=== PATIENT | female | born 1985 | race Caucasian/White ===

== ENCOUNTER → 2019-03-09 13:11 | Outpatient (CLI) | payer SELFPAY ==
[2017-07-08 04:04] VITALS: BMI 24.8
[2019-03-09 16:12] LABS: Chlamydia Trachomatis by PCR Negative (Negative); Neisserai gonorrhoeae by PCR Negative (Negative); Probe Check PASS; Sample Adequacy Control PASS; Specimen Processing Control PASS
== END ==
PROVIDERS: Visit Provider Obstetrics & Gynecology
DX: Z11.3 Encounter for screening for infections with a predominantly sexual mode of transmission (principal)
CPT/HCPCS: 87491; 87591

== ENCOUNTER → 2019-04-03 11:30 | Outpatient (CLI) | payer SELFPAY ==
[2017-07-08 04:04] VITALS: BMI 24.8
[2019-04-03 13:27] LABS: Absolute Lymphocyte Count 1.18 X10^3/uL (0.83-4.51); Absolute Neutrophil Count 6.9 X10^3/uL (2.0-7.7); Basophil# 0.04 X10^3/uL; Basophil% 0.5 % (0-1); Eosinophils% 2.3 % (0-5); Hematocrit 38.4 % (37-47); Lymphocyte # 1.18 X10^3/ul (4.0); Lymphocyte % 13.4 % (19-41); Mean Corp Hgb Conc 33.9 g/dL (32-36); Mean Corpuscular Hgb 30.1 pg (27.0-32.0); Mean Corpuscular Volume 88.9 fL (81-99); Mean Platelet Vol. 11.2 fl (6.2-12.0); Monocyte# 0.47 X10^3/uL; Monocyte% 5.3 % (0-10); NRBC Flagged by Analyzer 0 % (0-5); Neutrophil # 6.89 X10^3/uL (2.7-7.7); Neutrophil % 77.9 % (47-70); Platelet Count 246 K/mm3 (150-450); RBC Distribution Width CV 13.2 % (11.6-14.6); RBC Distribution Width SD 43.4 fl (35.1-43.9); Red Blood Count 4.32 M/mm3 (4.2-5.4); White Blood Count 8.8 K/mm3 (4.4-11.0)
[2019-04-03 13:36] LABS: Color, Urine Yellow (Yellow); Glucose, Dipstick Normal (Normal); Ketone-Dipstick Negative (Negative); Leukocyte Esterase-Dipstick Negative /ul (Negative); Nitrite-Dipstick Negative (Negative); Occult Blood-Urine Negative /ul (Negative); Protein-Dipstick Negative (Negative); Specific Gravity, Urine 1.005 (1.002-1.030); Urine Bilirubin Dipstick Negative (Negative); Urine Clarity Clear (Clear); Urine Urobilinogen Normal (Normal)
[2019-04-03 13:52] LABS: Thyroid Stim Hormone (TSH) 1.79 uIU/mL (0.358-3.74)
[2019-04-03 15:17] LABS: HIV - WCH Non-Reactive (Nonreactive); Hepatitis B Surface Antigen Non-Reactive (Nonreactive); Hepatitis C Antibody Non-Reactive (Nonreactive); Rubella IgG 165.9 IU/mL
[2019-04-06 02:58] LABS: Prenatal RPR NONREACTIVE (NONREACTIVE)
== END ==
PROVIDERS: Visit Provider Obstetrics & Gynecology
DX: Z34.82 Encounter for supervision of other normal pregnancy, second trimester (principal)
CPT/HCPCS: 36415; 80307; 81002; 84443; 85025; 86703; 86762; 86803; 87340

== ENCOUNTER → 2019-06-12 13:42 | Outpatient (CLI) | payer SELFPAY ==
[2017-07-08 04:04] VITALS: BMI 24.8
[2019-06-12 16:24] LABS: Hematocrit 35.2 % (37-47); Hemoglobin 11.9 g/dL (12.0-15.0); Mean Corp Hgb Conc 33.8 g/dL (32-36); Mean Corpuscular Hgb 30.7 pg (27.0-32.0); Mean Corpuscular Volume 90.7 fL (81-99); Mean Platelet Vol. 11.2 fl (6.2-12.0); Platelet Count 239 K/mm3 (150-450); RBC Distribution Width CV 13.2 % (11.6-14.6); RBC Distribution Width SD 43.8 fl (35.1-43.9); Red Blood Count 3.88 M/mm3 (4.2-5.4); White Blood Count 10.2 K/mm3 (4.4-11.0)
[2019-06-12 16:26] LABS: Glucose Challenge Gest 1H 50g 107 mg/dL (70-140)
== END ==
PROVIDERS: Visit Provider Obstetrics & Gynecology
DX: Z34.83 Encounter for supervision of other normal pregnancy, third trimester (principal)
CPT/HCPCS: 36415; 82950; 85027; 86850

== ENCOUNTER → 2019-08-09 | Outpatient (CLI) | payer SELFPAY | END | disposition home or self-care (01) | LOC: LABSPEC 14:05 | PROVIDERS: Visit Provider Obstetrics & Gynecology | DX: Z36.85 Encounter for antenatal screening for Streptococcus B (principal) | CPT/HCPCS: 87081 ==

== ENCOUNTER 2019-08-27 05:50 | Inpatient (IN) | payer SELFPAY ==
[2019-08-27] VITALS (27 sets, daily range): BP systolic 93–127; BP diastolic 53–76; PULSE 66–100; RESP 14–16; TEMP 36.5–37.4; O2SAT 96–99; BMI 24.8
[2019-08-27] MEDS: Lactated Ringers 500 ML 999 ML IV (06:25)
[2019-08-27 06:47] LABS: Absolute Lymphocyte Count 1.51 X10^3/uL (0.83-4.51); Absolute Neutrophil Count 7.1 X10^3/uL (2.0-7.7); Basophil# 0.04 X10^3/uL; Basophil% 0.4 % (0-1); Eosinophil# 0.25 X10^3/uL; Eosinophils% 2.6 % (0-5); Hematocrit 35.1 % (37-47); Hemoglobin 11.9 g/dL (12.0-15.0); Lymphocyte # 1.51 X10^3/ul (4.0); Lymphocyte % 15.8 % (19-41); Mean Corp Hgb Conc 33.9 g/dL (32-36); Mean Corpuscular Hgb 29.8 pg (27.0-32.0); Mean Platelet Vol. 11.4 fl (6.2-12.0); Monocyte# 0.58 X10^3/uL; Monocyte% 6.1 % (0-10); NRBC Flagged by Analyzer 0 % (0-5); Neutrophil # 7.09 X10^3/uL (2.7-7.7); Neutrophil % 74.2 % (47-70); Platelet Count 227 K/mm3 (150-450); RBC Distribution Width CV 13.2 % (11.6-14.6); RBC Distribution Width SD 42.3 fl (35.1-43.9); Red Blood Count 3.99 M/mm3 (4.2-5.4); White Blood Count 9.6 K/mm3 (4.4-11.0)
[2019-08-27] MEDS: Lactated Ringers 1,000 ML 200 ML IV (06:56)
[2019-08-27] MEDS: Oxytocin 30 units/NS 500 ml 30 UNITS/500 ML IV.SOLN 334 UNITS IV (07:33)
--- NOTE | 2019-08-27 07:39 | PCM.HP.BLA ---
History and Physical Date of Admission: 08/27/19 [facility] [place] ANTE[place] - HISTORY AND PHYSICAL (08/27/2019) Name: ANGELINA FARAH History of This : This is a 33-year-old 3 para 2 who presents to labor and delivery in active labor. care has been unremarkable. OB Physician: HECTOR [place]'s Physician: DR. LESLIE ROSS ...................................................................... : 1985 Age: 33 Address: [address] [place] [address] Phone: (h) [phone] ([phone] Insurance Carrier: Emergency Contact: CHIKA FARAH [phone] ...................................................................... Final MARY: 09/01/19 By Ultrasound: PARITY: (G-Total Pregnancies P-Fullterm,Premature,Induced AB,Spont AB, Ectopics, Multiple,Living) MARY CONFIRMATION: By LMP: 11/25/18 Initial Exam: 09/01/19 By First Ultrasound Exam: 09/01/19 Final MARY: 09/01/19 OB PROBLEM LIST: Declines AFP and CF tests. Tends to have frequent headaches- approx 2x w. Oligo with first . B Negative RhoGAM at 28 wk Initial visit at 14w5d. +FHT by DT ALLERGIES: NKDA MEDICATIONS: DHA+Complete 30 mg-975 mcg-300 mg oral pack 1 daily SOCIAL HISTORY: Smoking - Never Alcohol Use - None Diet - balanced Diet, caffeine < 2 drinks per day and water intake approx 1/2 gal day or more Lifestyle - Remodeling first floor of home. Moved into workshop for a few months. Exercise - gardening, walking and mowing Employer - homemaker Job Description - Illicit Drug Use - denies use of street drugs Sexual Activity - single sexual partner Residence - owns a home Place of - [place] Spouse-Sig Other Name - Rich Spouse-Sig Other Occupation - [employer] Spouse-Sig Other Phone No - [phone] Children Name(s) - Jason 15' (JW), Charlotteernestine (DS) PRIOR DELIVERY HISTORY DEL DATE GEST LAB WT LB WT OZ TYPE ANES LABOR TX 15 May 05 38 [phone] 10 Vag None No Jul 08 39 4 [phone] 4 Vag Local No ANTEPARTUM FLOW CHART VISIT RTC FU F F AK U U DATE WK MD WKS HT PN HR M SS BP ED WT AK GL D EF ST __ ____ ___ __ __ ___ __ __ __ ___ __ __ __ ___ __ 05 Aug CH 1 38 V + + 122/74 0 161 - - Jul SHM 1 36 V + + 110/76 o 160 - - Jul 36 CH 1 36 V + + 94/72 0 159 - - 3+ 25 hi 05 Jul 34 KW 2 34 V + + 108/54 0 159 - - Jun KW 2 31 + 106/58 156 - - Jul 20 CH 2 31 + + 90/62 0 156 - - Jun 17 ELB 2 - - U+ + 108/58 0 153 - - May 12 ELB 4 22 - + + 94/58 0 148 14 Apr 07 ELB 4 - B U+ + 100/70 0 142 - - ANTEPARTUM NOTE(S): Aug 24 2019: see note Aug 18 2020: Aug 09 2019: feeling well. GBS and LARC today. Jul 26 2019: Jul 12 2020: Jun 27 2019: feeling well. lots of heartburn. Jun 12 2019: RhoGAM today May 01 2019: No UA today Declines sono Apr 03 2019: see note COMPREHENSIVE ANTEPARTUM NOTE(S): Aug 24 2019: Angelina is here for a PNV. She is doing well, no edema or complaints. Good FM reported. MK Aug 24 2019: Doing well. +FM. No shivani oliveros contractions. Will want membrane stripping next visit possible with SVE. Reviewed 41wk and 41.3 NSTs and 41.6 IOL. - Aug 18 2019: H taken to OB. tkg Aug 18 2019: Labor precautions. Discussed stripping of membranes at next visit. Aug 09 2019: (m,m,m*) GBS swab education and collection today. Will review at next visit. FM+. FHR 135. SVE external OS 3-10/08/high, but internal OS 1. Will start weekly visits. Still has yet to meet [facility]. To return in 1 week for routine PNV. Understands to call with decreased FM, ROM, regular UC, or bleeding. - Jul 26 2019: Angelina states varicosities L leg not any worse. Reviewed Sx phlebitis. Wearing stockings, but not very supporting. Offered Rx support stockings; she will discuss further w/Veronica. Good FM. Still bothered w/heartburn. Taking enzymes, sometimes Tums. Advised use of Tums to keep heartburn from being bothersome, offered Pepcid before meals. To call if this is not helping and heartburn becoming more bothersome. kbm Jul 26 2019: Feeling well today with left leg varicosities, but states her compression hose she wears works well enough and doesn't want anything else. She has been putting them on after getting around for the day and taking them off in baudilio evening. Discussed putting them on before even exiting bed and not taking them off until in bed at night for full relief. Taking enzymes for heartburn and occasional TUMs. Discussed enzymes are okay, but to start regular tums and pepcid/maalox if needed. States understanding of both. Feeling +FM and FHR 138 today. Educated on GBS and swab at next visit. Will return in 2 weeks then start weekly visits. - Jul 12 2019: Feeling well; reports active FM; denies UCs, VB, LOF; discussed warning signs, s/s PTL; undecided as to CNM or MD for delivery, would like to meet [facility]; RTO 2 weeks for PNV w/[facility] - W Jun 27 2019: (m,m,m*) Reports +FM. FHR. Reviewed CBC and GTT both WNL. Feeling well, but heartburn is getting worse. Already taking enzymes with each meal, but now taking Tums. Reviewed may take them 4-6x a day if needed. BP runs on the lower side and is concerned. Already wears stocking on the left leg d/t varicose veins. Advised to wear compression stockings on both legs as well as increased water intake and reviewed slow position changes to prevent orthostasis. Discussed now infant has routine movements and if ever feeling less movement then need for kick counts. Educated on proper kick count method. Will return in 2 weeks for routine PNV with KW to start CNM rotation. To call with questions or concerns - Jun 12 2019: Angelina is doing well. Good FM. Voicing no concerns today. 1 HR Glucose, CBC, Antibody Screen drawn. Rhogam given after blood drawn. Jun 12 2019: Hgb 11.9 g/dl. Glucola 107 EB May 01 2019: B negative. RI. TSH wnl. Hgb 13 g/dl. UA neg all labs WNL and reviewed. RTO in 4 wk for PNV. EB Apr 03 2019: Angelina is here for NOB visit. She relates feeling ok except she has some tight feeling in her chest, more at night. Not significant shortness of breath. She could try something for reflux or see PCP to rule out other things. LMT Apr 03 2019: (m,m,m*)18w3d, ultrasound today revealing male. Will have new OB nurse visit as well. FM+. Only complaint is a tightness in chest, worse at night and in bed. Does notice after certain foods like pizza. Has enzymes at home she will try. If no relief or worsening/taking enzymes > 1x a day instructed to call for Rx. Reviewed SOB or chest pain to call/come in. No other concerns at this time. - CH Apr 03 2019: Angelina is here for NOB nurse visit with MARY 09-01-19 planning a vag del at [facility], without an epidural, using Dr Julien Ross for post disch ped care and to breastfeed. 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 They have almost 4 and 2 year old sons at home and this baby is male. They are pleased about the pg. Angelina had two uncomplicated vag del at [facility] and breastfed each baby one year. She has NKA to meds, food, latex or the environment. Her diet is balanced w one cup of coffee daily and about 1/2 gal of water. Importance of protein in her diet discussed. She is a lifetime non smoker, non drinker and denies street drug use. Angelina is active and busy w her home, garden and children. Enc to walk 20 min daily. Genetics Screening form completed noting no family issues. She declines AFP and CF tests. Warning signs in pg reviewed as well as lifting restrictions of 25#, wearing seatbelt ALWAYS despite position in vehicle, OTC meds ok to take and reaching the office after hours w understanding voiced. Both sons weigh at or over 25# and cautioned to use good body mechanics if no alternative to lifting them. She has a copy of What to Expect. US done at prev visit. Routine labs drawn today. They have no cats but she is aware of litter box issues. She's had chickenpox. Given the FoodSafety.gov paper on foods to avoid/be careful with. Enc to call w any concerns. Visit lasted approx 40 min. Edna DEL TORO. NEW Apr 03 2019: Hgb 13.0 g/dl. B negative. EB Mar 10 2019: GC and chlamydia NEG. EB Mar 09 2019: Angelina is being seen for missed menses visit. . UPT in office is positive. LMP 6. Pt is 14 weeks and 6 days. MARY 09-01-19. Last pap 2017 WNL, pap due 2020. Cultures due today. Medications and allergies are up to date. information reviewed with pt. Pt has no new concerns at this time. AM REVIEW OF SYSTEMS: GENERAL - Denies fever, or chills SKIN - Denies rash, new skin lesions, or change in moles EYES - Denies blurred vision, or change in visual acuity EARS - Denies ear pain, or difficulty hearing NOSE - Denies nasal congestion, discharge, or bleeding MOUTH - Denies sore throat, or difficulty swallowing NECK - Denies pain or swelling RESPIRATORY - Denies shortness of breath, cough, wheezing CARDIOVASCULAR - Denies palpitations, chest pain, orthopnea, PND, peripheral edema, syncope or claudication GASTROINTESTINAL - Denies nausea, vomiting, diarrhea, constipation, Denies abdominal pain, melena and or bright red blood GENITOURINARY - Denies dysuria, frequency of urination, urgency, or hesitancy MUSCULOSKELETAL - Denies joint or muscle pain, or back pain NEUROLOGICAL - Denies localized numbness, weakness, or tingling PSYCHIATRIC - Denies depression, anxiety, substance abuse or suicide attempts ENDOCRINE - Denies heat or cold intolerance, weight loss or gain, increasing thirst HEMATO-IMMUNOLOGIC - Denies easy bruising, bleeding, oral ulcerations or recurrent infections GENETICS SCREENING: Age 35+ years: No Thalassemia: No Neural Tube Defect: No Down Syndrome: No ERICK-SACHS: No Sickle Cell Disease: No Hemophilia: No Musc. Dystrophy: No Cystic Fibrosis: No-declines screening [place] Chorea: No Mental Retardation: No Fragile X: No Other genetic: No Other defects: No SABs/still births: No Drugs since LMP: No INFECTION HISTORY: High risk AIDS: No High risk Hepatitis: No Exposed to TB: No Exposed to Herpes: No Rash/viral illness since LMP: No History of STD: No MENSTRUAL HISTORY: *Menses Amount/Duration: 5-6 DAYSMenses Regularity: RegularFrequency: monthlyMenarche (Age Onset): 12* PAST SUMMARY: PARITY: 1. Total Pregnancies............ 3 2. Full Term Pregnancies........ 2 3. Premature.................... 0 4. Abortions - Induced.......... 0 5. Abortions - Spontaneous...... 0 6. Ectopics..................... 0 7. Multiple Births.............. 0 8. Living Children.............. 2 PAST #1: Date of :.................. 05/05/15 Gestation Weeks:................ 38 Length of labor(hours):......... 7 Sex:............................ M Weight-lbs:............... 6 Weight-oz:................ 10 Type of Delivery:............... Vag Type of Anesthesia:............. None Place of Delivery:.............. [place] Treatment of Labor?:.... No Comment: OLIGO PAST #2: Date of :.................. 07/08/17 Gestation Weeks:................ 39 Length of labor(hours):......... 4 Sex:............................ M Weight-lbs:............... 7 Weight-oz:................ 4 Type of Delivery:............... Vag Type of Anesthesia:............. Local Place of Delivery:.............. [place] Treatment of Labor?:.... No Comment: NO PHYSICAL EXAMINATION General Appearence: 33 yo female in no acute distress Vital Signs: AF, VSS Heart: RRR without rubs or gallops Lungs: CTA x 2 Breasts: deferred Abdomen: gravid Pelvis: Cervix: 5 cm / 90% effaced/intact Presentation: cephalic Station: -2 Fetus: Size: AGA Movement: present Heart: present Labs for : ANGELINA FARAH since 12/05/2018 ORDER DATEIN DESCRIPTION VALUE UNITS RANGE A+ COMMENT CULTURE, GROUP B STREPTOCOCCUS 08/09/19 NOTE Original Ordering Provider: DAVID Ruvalcaba Comments: VAGINAL/RECTAL STEPHANIE Culture Group B Beta Streptococcus is not isolated. Reviewed by HECTOR ANTIBODY SCREEN 06/12/19 [facility]~[address] [place], [address]~ ANTIBODY SCREEN NEGATIVE N Reviewed by ANJALI GLUCOSE CHALLENGE GEST 1H 50G 06/12/19 NOTE Original Ordering Provider: Anjali Kathleen GLU GEST 50G 1H 107 mg/dL 70-140 Reviewed by ANJALI CBC-COMPLETE BLOOD CNT NO DIFF 06/12/19 NOTE Original Ordering Provider: Anjali Kathleen WBC 10.2 K/mm3 4.4-11.0 RBC 3.88 M/mm3 4.2-5.4 L HGB 11.9 g/dL 12.0-15.0 L HCT 35.2 % 37-47 L MCV 90.7 fL 81-99 MCH 30.7 pg 27.0-32.0 MCHC 33.8 g/dL 32-36 RDW CV 13.2 % 11.6-14.6 RDW SD 43.8 fl 35.1-43.9 PLT 239 K/mm3 150-450 MPV 11.2 fl 6.2-12.0 Reviewed by ANJALI RPR 04/03/19 NOTE Original Ordering Provider: Anjali Kathleen RPR NONREACTIVE NONREACTIVE Reviewed by ANJALI HEPATITIS C ANTIBODY 04/03/19 NOTE Original Ordering Provider: Anjali Kathleen HEPATITIS C AB Non-Reactive Nonreactive Non Reactive: < 0.8 Equivocal: >/= 0.8 to < 1.0 Reactive: >/= 1.0 The CDC recommends that a reactive/equivocal HCV antibody result be followed up by the HCV Nucleic Acid Amplification test (454208) Reviewed by ANJALI HEPATITIS B SURFACE ANTIGEN 04/03/19 NOTE Original Ordering Provider: Anjali Kathleen HEPB SURFACE AG Non-Reactive Nonreactive Reviewed by ANJALI HIV - [facility] 04/03/19 NOTE Original Ordering Provider: Anjali Kathleen HIV - [facility] Non-Reactive Nonreactive Reviewed by ANJALI RUBELLA IGG 04/03/19 NOTE Original Ordering Provider: Anjali Kathleen RUBELLA IGG 165.9 IU/mL Antibody results Interpretation of Immune Status < 5 IU/ml Presumed Non-immune 5 - < 10 IU/ml Equivocal > or = 10 IU/ml Presumed Immune Reviewed by ANJALI T AND S-NO CHARGE W/PNP 04/03/19 Reason for Type AND Screen/Red Cells: Surgery? N [facility]~[address] [place], [address]~ BLOOD TYPE GEL B NEGATIVE N AB SCREEN GEL NEGATIVE N Reviewed by ANJALI THYROID STIM HORMONE (TSH) 04/03/19 NOTE Original Ordering Provider: Anjali Kathleen TSH 1.79 uIU/mL 0.358-3.74 Reviewed by ANJALI CBC W/DIFF, AUTOMATED 04/03/19 NOTE Original Ordering Provider: Anjali Kathleen WBC 8.8 K/mm3 4.4-11.0 RBC 4.32 M/mm3 4.2-5.4 HGB 13.0 g/dL 12.0-15.0 HCT 38.4 % 37-47 MCV 88.9 fL 81-99 MCH 30.1 pg 27.0-32.0 MCHC 33.9 g/dL 32-36 RDW CV 13.2 % 11.6-14.6 RDW SD 43.4 fl 35.1-43.9 PLT 246 K/mm3 150-450 MPV 11.2 fl 6.2-12.0 NEUT% 77.9 % 47-70 H LY% 13.4 % 19-41 L MONO% 5.3 % 0-10 EO% 2.3 % 0-5 BASO% 0.5 % 0-1 IM GRAN % 0.600 % 0.0-0.9 IG% - Immature Granulocytes (promyelocytes, myelocytes and metamyelocytes) > 1% indicates that a LEFT SHIFT is Present. ABSOLUTE NEUT 6.9 X10 3/uL 2.0-7.7 ABSOLUTE LYMPH 1.18 X10 3/uL 0.83-4.51 NRBC, FLAGGED 0 % 0-5 Reviewed by ANJALI URINE DRUG SCREEN (VISTA) 04/03/19 NOTE Original Ordering Provider: Anjali Kathleen TO BE CONFIRMED CONFIRMATORY TESTING FOR ALL POSITIVE URINE DRUG SCREEN RESULTS WILL ONLY BE SENT OUT UPON PHYSICIAN ORDER. VISTA Urine Drug Screen methods provide only preliminary analytical test results. A more specific alternate chemical method must be used in order to obtain a confirmed analytical result. Gas chromatography/mass spectrometery (GC/MS) is the preferred confirmatory method. Clinical consideration and professional judgement should be applied to any drug of abuse test result, particularly when preliminary positive results are used. URINE TCA TESTING MUST BE ORDERED SEPARATELY. USE TEST MNEMONIC: UTCA Reviewed by ANJALI URINALYSIS, ROUTINE (DIPSTICK) 04/03/19 NOTE Original Ordering Provider: Anjali Kathleen COLOR Yellow Yellow CLARITY Clear Clear GLUCOSE, UR Normal mg/dl Normal BILIRUBIN URINE Negative mg/dL Negative KETONE UR Negative mg/dl Negative SP.GR. DIPSTX 1.005 1.002-1.030 PH UR 7.0 5.0 - 8.0 PROT DIPSTX Negative mg/dl Negative UROBILI Normal mg/dl Normal NITRITE UR Negative Negative OCCULT BLOOD-UR Negative /ul Negative LEUK ESTERASE Negative /ul Negative Reviewed by ANJALI URINE DRUG SCREEN (VISTA) 04/03/19 NOTE Original Ordering Provider: Anjali Kathleen TO BE CONFIRMED CONFIRMATORY TESTING FOR ALL POSITIVE URINE DRUG SCREEN RESULTS WILL ONLY BE SENT OUT UPON PHYSICIAN ORDER. VISTA Urine Drug Screen methods provide only preliminary analytical test results. A more specific alternate chemical method must be used in order to obtain a confirmed analytical result. Gas chromatography/mass spectrometery (GC/MS) is the preferred confirmatory method. Clinical consideration and professional judgement should be applied to any drug of abuse test result, particularly when preliminary positive results are used. URINE TCA TESTING MUST BE ORDERED SEPARATELY. USE TEST MNEMONIC: UTCA Reviewed by ANJALI LOUISE/LUIS [facility] BY PCR 03/09/19 NOTE Original Ordering Provider: Anjali Kathleen [facility] PCR Negative Negative NG BY PCR Negative Negative Reviewed by ANJALI Impression /Plan: 39+ week intrauterine in active labor. Rupture of membranes showed light to moderate meconium stained fluid. Plan to have respiratory therapy and pediatrics at delivery. Preparations in progress for delivery.
--- NOTE | 2019-08-27 07:42 | PCM.OPRPT ---
Vaginal Delivery Maternal Presentation: Active Labor Amniotic Membrane Rupture Type: Artificial Amniotic Fluid Description: Lightly stained meconium Final MARY: 09/01/19 Final MARY Source: US <20 weeks Gestational age: 39 Weeks and 2 Days doctor who attended delivery (if requested by OB): Hanh Bryant Date of Procedure: 08/27/19 Pre-Operative Diagnosis: IUP Post-Operative Diagnosis: IUP Surgery/ Procedure Performed: Spontaneous Vaginal Delivery Type of Anesthesia: Local with 1% lidocaine Description of Procedure: Spontaneous vaginal delivery of a viable male infant with Apgars of 8/9 from an occiput anterior presentation with lightly stained meconium fluid and normal three-vessel placenta with cord around the neck x1 tight. No episiotomy. Second-degree midline laceration repaired with 3-0 Rapide suture under local anesthesia. Sponges okay. Delivery physician: Thang Hinojosa MD. Presentation: Vertex Placental Delivery Description: Spontaneous Placenta Disposition: [facility] Cord Vessel Description: 3 Vessels Cord Entanglement: Around neck x 1, tight Estimated Blood Loss: 250 cc Infant A gender: Male (1 minute): 8 (5 minute): 9 Episiotomy Description: None Laceration: Midline, 2nd degree Medications given after delivery: IV Pitocin Complications: None
[2019-08-27] MEDS: Ibuprofen 600 MG Tablet PO ×2 (08:24→18:26)
[2019-08-28 03:50] VITALS: BP 91/62; PULSE 64; RESP 16; TEMP 36.6
[2019-08-28 07:36] VITALS: BP 95/65; PULSE 73; RESP 16; TEMP 36.4
--- NOTE | 2019-08-28 10:00 | PCM.PN.OB ---
Subjective: Patient without complaints. Breast-feeding going well. Minimal vaginal bleeding; wants to go home later today if possible. - Physical Exam Vitals/I&O's: Vital Signs Temp Pulse Resp BP Pulse Ox 97.6 F L 73 16 95/65 99 08/28/19 07:36 08/28/19 07:36 08/28/19 07:36 08/28/19 07:36 08/27/19 09:35 Oxygen Delivery Method Room Air Weight: 158 lb 11.725 oz Body Mass Index (BMI) 24.8 Intake and Output for Last 24 Hours 08/26/19 08/27/19 08/28/19 22:59 23:59 23:59 Intake Total Balance Laboratory Results 08/27/19 06:25: Blood Type B NEGATIVE, Antibody Screen TNP 08/27/19 06:25: Antibody Screen NEGATIVE Current Medications Acetaminophen (Tylenol) 1,000 mg PO Q8H PRN PRN PRN Reason: Pain Score 1-3/10 Bisacodyl (Dulcolax) 10 mg RECTAL UD PRN PRN Reason: If no BM Dibucaine (Dibucaine) 1 applic TOPICAL TID PRN PRN; Protocol PRN Reason: Discomfort Hydrocortisone (Hytone) 1 applic TOPICAL TID PRN PRN; Protocol PRN Reason: Discomfort Ibuprofen (Motrin) 600 mg PO Q6H PRN PRN PRN Reason: Pain Score 1-3/10 Last Admin: 08/27/19 18:26 Dose: 600 mg Documented by: Methylergonovine Maleate (Methergine) 0.2 mg IM X1 PRN PRN Reason: Excess bleeding/uterine atony Ondansetron HCl (Zofran) 4 mg IV Q4H PRN PRN PRN Reason: Nausea Oxycodone HCl (Oxyir) 5 - 10 mg PO Q4H PRN PRN PRN Reason: Pain Score 4-10/10 Senna/Docusate Sodium (Senokot-S, Pura-Colace) 1 - 2 tablet PO DAILY PRN PRN PRN Reason: Constipation Simethicone (Mylicon) 80 mg PO PCHS PRN PRN Reason: Indigestion/Stomach pain Sodium Chloride () 5 - 15 ml IV UD PRN PRN Reason: SALINE FLUSH Zolpidem Tartrate (Ambien (Generic)) 5 mg PO QHS PRN PRN PRN Reason: Insomnia Medical Necessity - Tobacco Use Smoking Status: Never smoker Assessment/Plan All Active Problems Active labor at term (Acute) Doing well day #1 status post routine spontaneous vaginal delivery. Will release to home with routine instructions.
--- NOTE | 2019-08-28 10:01 | DCINST_ITS ---
May resume sexual activity in: 4-6 weeks Additional Activity Instructions:: Nothing in the vagina for 4-6 weeks. You may return to work/school in 6 weeks. Call your doctor if you observe: Inability to urinate, Inability to have a bowel movement, Using more than one pad per hour Additional Instructions: If you experience any of the following, contact your healthcare provider. * Bleeding that soaks a pad every hour for 2 hours * Fever 100.4 or higher * Unrelieved incision or abdominal pain * Swelling, redness, discharge or bleeding from your incision or episiotomy site * Your incision begins to separate * Problems urinating (including inability to urinate or burning while urinating). * Visual changes * Severe headache * Flu-like symptoms * Pain or redness in one of both of your breasts * Pain, warmth, tenderness or swelling in your legs, especially the calf area * Frequent nausea and vomiting * Symptoms of depression or anxiety If you experience any of the following, call 911 or go to the nearest Emergency Room. * Chest pain * Problems breathing * Seizure activity * Partial or complete paralysis of a body part, slurred speech, weakness or drooping of the face, or a sudden inability to walk or hold your balance Allergies/Adverse Reactions: Allergies No Known Allergies Allergy (Verified 08/27/19 06:18) Medications to take at Discharge Docosahexanoic Acid [ Dha] 1 tab PO BID 07/08/17 Please Follow Up With: Lindsay Ruvalcaba, [facility] - [phone] When: Call to make an appointment with your provider in 2 and 6 weeks. Primary Care Physician: Care Physician,No Primary [Primary Care Provider] - Test Results: Test results from this visit will be discussed in further detail at your follow- up appointment, if applicable.
--- NOTE | 2019-08-28 10:01 | PCM.DCVAG ---
May resume sexual activity in: 4-6 weeks Additional Activity Instructions:: Nothing in the vagina for 4-6 weeks. You may return to work/school in 6 weeks. Call your doctor if you observe: Inability to urinate, Inability to have a bowel movement, Using more than one pad per hour Additional Instructions: If you experience any of the following, contact your healthcare provider. Bleeding that soaks a pad every hour for 2 hours Fever 100.4 or higher Unrelieved incision or abdominal pain Swelling, redness, discharge or bleeding from your incision or episiotomy site Your incision begins to separate Problems urinating (including inability to urinate or burning while urinating). Visual changes Severe headache Flu-like symptoms Pain or redness in one of both of your breasts Pain, warmth, tenderness or swelling in your legs, especially the calf area Frequent nausea and vomiting Symptoms of depression or anxiety If you experience any of the following, call 911 or go to the nearest Emergency Room. Chest pain Problems breathing Seizure activity Partial or complete paralysis of a body part, slurred speech, weakness or drooping of the face, or a sudden inability to walk or hold your balance Allergies/Adverse Reactions: Allergies No Known Allergies Allergy (Verified 08/27/19 06:18) Medications to take at Discharge Docosahexanoic Acid [ Dha] 1 tab PO BID 07/08/17 Please Follow Up With: Lindsay Ruvalcaba, [facility] - [phone] When: Call to make an appointment with your provider in 2 and 6 weeks. Primary Care Physician: Care Physician,No Primary [Primary Care Provider] - Test Results: Test results from this visit will be discussed in further detail at your follow-up appointment, if applicable.
[2019-08-28 14:07] VITALS: BP 98/69; PULSE 66; RESP 16; TEMP 36.8; O2SAT 98
== END 2019-08-28 14:30 | disposition home or self-care (01) | DRG 807 ==
PROVIDERS: Admitting Provider Obstetrics & Gynecology; Visit Provider Obstetrics & Gynecology
DX: O77.0 Labor and delivery complicated by meconium in amniotic fluid (principal); Z37.0 Single live birth; Z3A.39 39 weeks gestation of pregnancy; O70.1 Second degree perineal laceration during delivery; O69.1XX0 Labor and delivery complicated by cord around neck, with compression, not applicable or unspecified
CPT/HCPCS: 59025; 59050; 85025; 86850; 86900; 86901; 99218; J7120; G0378

== ENCOUNTER → 2019-10-25 | Outpatient (CLI) | payer OTHER, SELFPAY ==
[2019-08-27 06:17] VITALS: BMI 24.8
== END | disposition home or self-care (01) ==
PROVIDERS: Referring Provider Obstetrics & Gynecology; Visit Provider Obstetrics & Gynecology
DX: Z12.4 Encounter for screening for malignant neoplasm of cervix (principal)
CPT/HCPCS: 88175; G0145

== ENCOUNTER → 2020-10-02 15:05 | Outpatient (CLI) | payer OTHER, SELFPAY ==
[2019-08-27 06:17] VITALS: BMI 24.8
[2020-10-02 15:33] LABS: Absolute Lymphocyte Count 1.45 X10^3/uL (0.83-4.51); Absolute Neutrophil Count 7.6 X10^3/uL (2.0-7.7); Basophil# 0.04 X10^3/uL; Basophil% 0.4 % (0-1); Eosinophil# 0.52 X10^3/uL; Eosinophils% 5.2 % (0-5); Hematocrit 37.8 % (37-47); Hemoglobin 12.5 g/dL (12.0-15.0); Lymphocyte # 1.45 X10^3/ul (0.83-4.51); Lymphocyte % 14.5 % (19-41); Mean Corp Hgb Conc 33.1 g/dL (32-36); Mean Corpuscular Hgb 28.7 pg (27.0-32.0); Mean Corpuscular Volume 86.7 fL (81-99); Mean Platelet Vol. 10.3 fl (6.2-12.0); Monocyte# 0.42 X10^3/uL; Monocyte% 4.2 % (0-10); NRBC Flagged by Analyzer 0 % (0-5); Neutrophil # 7.56 X10^3/uL (2.7-7.7); Neutrophil % 75.3 % (47-70); Platelet Count 270 K/mm3 (150-450); RBC Distribution Width CV 13.3 % (11.6-14.6); RBC Distribution Width SD 42.5 fl (35.1-43.9); Red Blood Count 4.36 M/mm3 (4.2-5.4)
[2020-10-02 15:43] LABS: Color, Urine Yellow (Yellow); Glucose, Dipstick Normal (Normal); Ketone-Dipstick Negative (Negative); Leukocyte Esterase-Dipstick Negative /ul (Negative); Nitrite-Dipstick Negative (Negative); Occult Blood-Urine Negative /ul (Negative); Protein-Dipstick Negative (Negative); Urine Bilirubin Dipstick Negative (Negative); Urine Clarity Clear (Clear); Urine Urobilinogen Normal (Normal); Urine pH 6.5 (5.0 - 8.0)
[2020-10-02 16:01] LABS: Thyroid Stim Hormone (TSH) 1.87 uIU/mL (0.358-3.74)
[2020-10-03 09:00] LABS: HIV - WCH Non-Reactive (Nonreactive); Hepatitis B Surface Antigen Non-Reactive (Nonreactive); Hepatitis C Antibody Non-Reactive (Nonreactive); Rubella IgG Reactive (Nonreactive); Syphilis Antibodies Non-reactive
[2020-10-05 03:07] LABS: Chlamydia By Nucleic Acid AMP Negative (Negative)
[2020-10-05 19:53] LABS: Gonococcus By Nucleic Acid AMP Negative (Negative)
== END ==
PROVIDERS: Visit Provider Obstetrics & Gynecology
DX: Z32.01 Encounter for pregnancy test, result positive (principal); Z11.3 Encounter for screening for infections with a predominantly sexual mode of transmission
CPT/HCPCS: 36415; 81002; 84443; 85025; 86703; 86762; 86780; 86803; 87340; 87491; 87591

== ENCOUNTER → 2021-01-15 09:57 | Outpatient (CLI) | payer OTHER, SELFPAY ==
[2019-08-27 06:17] VITALS: BMI 24.8
[2021-01-15 11:16] LABS: Hematocrit 30.9 % (37-47); Hemoglobin 10.3 g/dL (12.0-15.0); Mean Corp Hgb Conc 33.3 g/dL (32-36); Mean Corpuscular Hgb 29.9 pg (27.0-32.0); Mean Corpuscular Volume 89.8 fL (81-99); Mean Platelet Vol. 10.8 fl (6.2-12.0); Platelet Count 263 K/mm3 (150-450); RBC Distribution Width CV 13.2 % (11.6-14.6); RBC Distribution Width SD 43.6 fl (35.1-43.9); Red Blood Count 3.44 M/mm3 (4.2-5.4); White Blood Count 10.2 K/mm3 (4.4-11.0)
[2021-01-15 11:22] LABS: Glucose Challenge Gest 1H 50g 64 mg/dL (70-140)
== END ==
PROVIDERS: Visit Provider Obstetrics & Gynecology
DX: Z34.83 Encounter for supervision of other normal pregnancy, third trimester (principal)
CPT/HCPCS: 36415; 82950; 85027; 86850

== ENCOUNTER → 2021-03-13 10:58 | Outpatient (CLI) | payer OTHER, SELFPAY | PROVIDERS: Visit Provider Obstetrics & Gynecology | DX: Z36.85 Encounter for antenatal screening for Streptococcus B (principal) | CPT/HCPCS: 87081 ==

== ENCOUNTER 2021-04-09 07:00 | Inpatient (IN) | payer SELFPAY, OTHER ==
[2021-04-09] VITALS (22 sets, daily range): BP systolic 102–121; BP diastolic 56–78; PULSE 69–96; RESP 16–18; TEMP 36.3–37.4; O2SAT 99–100; BMI 26.4
[2021-04-09] MEDS: Lactated Ringers 1,000 ML 50 ML IV (07:50)
[2021-04-09 08:06] LABS: Absolute Lymphocyte Count 1.25 X10^3/uL (0.83-4.51); Absolute Neutrophil Count 6.4 X10^3/uL (2.0-7.7); Basophil# 0.03 X10^3/uL; Basophil% 0.4 % (0-1); Eosinophil# 0.11 X10^3/uL; Eosinophils% 1.3 % (0-5); Hematocrit 29.5 % (37-47); Hemoglobin 9.3 g/dL (12.0-15.0); Lymphocyte # 1.25 X10^3/ul (0.83-4.51); Lymphocyte % 14.8 % (19-41); Mean Corp Hgb Conc 31.5 g/dL (32-36); Mean Corpuscular Hgb 25.2 pg (27.0-32.0); Mean Corpuscular Volume 79.9 fL (81-99); Mean Platelet Vol. 11.1 fl (6.2-12.0); Monocyte% 7.1 % (0-10); NRBC Flagged by Analyzer 0 % (0-5); Neutrophil # 6.37 X10^3/uL (2.7-7.7); Neutrophil % 75.3 % (47-70); Platelet Count 258 K/mm3 (150-450); RBC Distribution Width CV 14.7 % (11.6-14.6); RBC Distribution Width SD 42.5 fl (35.1-43.9); Red Blood Count 3.69 M/mm3 (4.2-5.4); White Blood Count 8.5 K/mm3 (4.4-11.0)
[2021-04-09] MEDS: Oxytocin 30 units/NS 500 ml 30 UNITS/500 ML IV.SOLN IV (08:20)
--- NOTE | 2021-04-09 14:16 | HP.PCM_ITS ---
History and Physical Date of Admission: 04/09/21 ACOG ANTEPARTUM RECORD - HISTORY AND PHYSICAL (04/09/2021) Name: ANGELINA FARAH History of this : This is a 35 year old [id number] presents at 40 wks + 2 days gestation for elective induction.. OB Physician: Thang Hinojosa MD 's Physician: DR. LESLIE ROSS ...................................................................... : 1985 Age: 35 Address: [address] [place] [address] Phone: (h) [phone] Insurance Carrier: Emergency Contact: CHIKA FELIPE LEXUS [phone] ...................................................................... Final MARY: 04/07/21 By Ultrasound: 18 weeks 2 days PARITY: (G-Total Pregnancies P-Fullterm,Premature,Induced AB,Spont AB, Ectopics, Multiple,Living) MARY CONFIRMATION: By LMP: 06/17/20 Initial Exam: 03/24/21 By First Ultrasound Exam: 04/07/21 Final MARY: 04/07/21 OB PROBLEM LIST: Last baby- in WP 1 h 15 min prior to del. Oligo with first . 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 Moved into workshop for a few months. Exercise - Busy w family, home, garden, mow lawn. Employer - homemaker Job Description - Illicit Drug Use - denies use of street drugs Sexual Activity - single sexual partner Residence - owns a home Place of - [place] Spouse-Sig Other Name - Rich Spouse-Sig Other Occupation - [employer] Spouse-Sig Other Phone No - [phone] Children Name(s) - Jason 15' (JW), Maryse (DS), [place] PRIOR DELIVERY HISTORY DEL DATE GEST LAB WT LB WT OZ TYPE ANES LABOR TX 08 Sep 07 [phone] Vag Local No May 05 [phone] 10 Vag None No Jul 08 39 4 [phone] 4 Vag Local No ANTEPARTUM FLOW CHART VISIT GE RTC FU F F FL U U DATE WK MD WKS HT PN HR M SS BP ED WT FL GL D EF ST __ ____ ___ __ __ ___ __ __ __ ___ __ __ __ ___ __ Mar JMW 6 38 + + 100/72 1+ 170 - - 14 Mar JMW 1 38 + + 118/64 tr 172 ne ne 2 50 -2 07 Mar JMW 1 38 V + + 112/70 sl 170 - - 29 Feb 37 JMW 1 37 + + 116/80 0 171 - - 23 Feb 36 JMW 1 36 V + + 104/60 0 164 tr - cl 80 -2 09 Feb 34 JMW 2 34 + + 108/66 0 166 Jan JMW 2 32 + + 104/60 0 166 ne ne Jan 15 JM 2 28 - on + 98/64 tr 161 ne ne Dec 10 JMW 6 22 + + 82/62 sl 153 - - November 05 JMW 4 18 + + 110/60 0 146 ne ne ANTEPARTUM NOTE(S): Apr 08 2021: Good FM and Induce per Request Apr 03 2021: Occas contx with inc vaginal pressure Mar 27 2021: Good FM, Feeling Well Mar 19 2021: feeling well. AM Mar 13 2021: GBS today, Good FM, LARC form signed Feb 27 2021: feeling well. AM Feb 12 2021: vericosities left leg, Good FM Jan 15 2021: Rhogam, GCT today Dec 02 2020: Glucola Given Nov 06 2020: US today, genetic packet given COMPREHENSIVE ANTEPARTUM NOTE(S): Apr 08 2021: Angelina here for PNV. FM today. Last night was concerned she didn't feel any. Edema check +1 from socks. CB Apr 08 2021: Scheduled for Induction for Wednesday04-08-21 at 0700 and knows to call at 0500 for verification of room. Questions answered and consents signed. ARVIND Mar 27 2021: Angelina presents here today for PNV and reports feeling well and good FM. Declines offer to set up Induction at this time, as she admits she prefers to go on her own, or she has with her other 3 children. ARVIND Mar 18 2021: H taken to OB. tkg Feb 12 2021: Angelina is here for PNV at 32/2. Feeling well with good FM. Eating and getting adequate fluids. Still with vericosites of left leg. Wearing support stockings which helps as well as elevation. Voicing no concerns. Urine neg/neg. LSS Jan 15 2021: Angelina is here for PNV. GCT/labs and Rhogam today. Voicing no complaints. Feeling well and taking food/fluids without difficulty. Having good FM. No edema present today. Urine neg/neg. LSS Jan 15 2021: 28 weeks, ultrasound today AGA. Resolved marginal previa. 1 hour GTT and RhoGam today. With history of oligohydramnios will consider repeat ultrasound at 35 to 36 weeks. JM Dec 02 2020: Angelina is here for a PNV at 22 wks. FM present, anterior placenta. Sl edema present in ankles, varicose veins L ankle. No concerns expressed at this time. MK Nov 06 2020: Angelina is here folloiwng US for PNV. Changed from 20w3d to 18w2d per US with MARY 04-07-21. Genetic packet given. Having no problems with N/V. No edema noted today. Does wear support stockings. Having faint FM. Anterior placenta on US. Urine neg/neg. No concerns today. 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 Rich works at [employer]. They are pleased about the pg. Their children are 5, 3 and 13 mo. Angelina has NKAD. She is a lifetime non smoker, non drinker and denies street drug use. Her diet is balanced w occ pop and clos Oct 02 2020: Angelina is here for missed menses. Office UPT +. LMP 06-17-20. 15w 2d. MARY 03-24-21. . Last PAP and WNL. Feeling well with very little nausea at this time. Had more earlier in . Otherwise no changes in health history. Allergy and medication lists updated. Taking her vitamin. info packet given. Labs drawn today. Deferrs to have US at next apt close Oct 02 2020: ok REVIEW OF SYSTEMS: GENERAL - Denies fever, or chills SKIN - Denies rash, new skin lesions, or change in moles EYES - Denies blurred vision, or change in visual acuity EARS - Denies ear pain, or difficulty hearing NOSE - Denies nasal congestion, discharge, or bleeding MOUTH - Denies sore throat, or difficulty swallowing NECK - Denies pain or swelling RESPIRATORY - Denies shortness of breath, cough, wheezing CARDIOVASCULAR - Denies palpitations, chest pain, orthopnea, PND, peripheral edema, syncope or claudication GASTROINTESTINAL - Denies nausea, vomiting, diarrhea, constipation, Denies abdominal pain, melena and or bright red blood GENITOURINARY - Denies dysuria, frequency of urination, urgency, or hesitancy MUSCULOSKELETAL - Denies joint or muscle pain, or back pain NEUROLOGICAL - Denies localized numbness, weakness, or tingling PSYCHIATRIC - Denies depression, anxiety, substance abuse or suicide attempts ENDOCRINE - Denies heat or cold intolerance, weight loss or gain, increasing thirst HEMATO-IMMUNOLOGIC - Denies easy bruising, bleeding, oral ulcerations or recurrent infections GENETICS SCREENING: Age 35+ years: Yes Thalassemia: No Neural Tube Defect: No Down Syndrome: No ERICK-SACHS: No Sickle Cell Disease: No Hemophilia: No Musc. Dystrophy: No Cystic Fibrosis: No-declines screening Camas Chorea: No Mental Retardation: No Fragile X: No Other genetic: No Other defects: No SABs/still births: No Drugs since LMP: No INFECTION HISTORY: High risk AIDS: No High risk Hepatitis: No Exposed to TB: No Exposed to Herpes: No Rash/viral illness since LMP: No History of STD: No MENSTRUAL HISTORY: *Menarche (Age Onset): 12* PAST SUMMARY: PARITY: 1. Total Pregnancies............ 4 2. Full Term Pregnancies........ 3 3. Premature.................... 0 4. Abortions - Induced.......... 0 5. Abortions - Spontaneous...... 0 6. Ectopics..................... 0 7. Multiple Births.............. 0 8. Living Children.............. 3 PAST #1: Date of :.................. 05/05/15 Gestation Weeks:................ 38 Length of labor(hours):......... 7 Sex:............................ M Weight-lbs:............... 6 Weight-oz:................ 10 Type of Delivery:............... Vag Type of Anesthesia:............. None Place of Delivery:.............. [place] Treatment of Labor?:.... No Comment: OLIGO PAST #2: Date of :.................. 07/08/17 Gestation Weeks:................ 39 Length of labor(hours):......... 4 Sex:............................ M Weight-lbs:............... 7 Weight-oz:................ 4 Type of Delivery:............... Vag Type of Anesthesia:............. Local Place of Delivery:.............. [place] Treatment of Labor?:.... No Comment: NO PAST #3: Date of :.................. 08/27/19 Gestation Weeks:................ 39 Length of labor(hours):......... 6 Sex:............................ M Weight-lbs:............... 6 Weight-oz:................ 12 Type of Delivery:............... Vag Type of Anesthesia:............. Local Place of Delivery:.............. [place] Treatment of Labor?:.... No Comment: NO PHYSICAL EXAMINATION General Appearence: 35 yo female in no acute distress Vital Signs: AF, VSS Heart: RRR without rubs or gallops Lungs: CTA x 2 Breasts: deferred Abdomen: gravid Pelvis: Cervix: Presentation: cephalic Station: Fetus: Size: AGA Movement: present Heart: present LAB TEST(S) ORDERED SINCE:07/11/20 04/09/2021 TYPE AND SCREEN 04/09/2021 CBC W/DIFF, AUTOMATED 03/16/2021 RULE OUT BETA STREP (GRP. B) 01/15/2021 GLUCOSE CHALLENGE GEST 1H 50G 01/15/2021 CBC-COMPLETE BLOOD CNT NO DIFF 01/15/2021 [id number] 10/05/2020 CHLAMYDIA/GC JIA APTIMA 10/03/2020 RUBELLA IGG 10/03/2020 L509.8000 10/03/2020 HIV - [facility] 10/03/2020 HEPATITIS C ANTIBODY 10/03/2020 HEPATITIS B SURFACE ANTIGEN 10/02/2020 URINALYSIS, ROUTINE (DIPSTICK) 10/02/2020 THYROID STIM HORMONE (TSH) 10/02/2020 T AND S-NO CHARGE W/PNP 10/02/2020 CBC W/DIFF, AUTOMATED = = ==== Order Observation Description Value Ref_Range A* Site == ==== Labor [facility]~[address] [place], [address]~ TYPE AND SCRE AB SCREEN GEL NEGATIVE ML CBC W/DIFF, AUT NOTE [facility] CBC W/DIFF, AUT WBC 8.5 K/mm3 4.4-11.0 ML CBC W/DIFF, AUT RBC 3.69 M/mm3 4.2-5.4 L ML CBC W/DIFF, AUT HGB 9.3 g/dL 12.0-15.0 L ML CBC W/DIFF, AUT HCT 29.5 37-47 L ML CBC W/DIFF, AUT MCV 79.9 fL 81-99 L ML CBC W/DIFF, AUT MCH 25.2 pg 27.0-32.0 L ML CBC W/DIFF, AUT MCHC 31.5 g/dL 32-36 L ML CBC W/DIFF, AUT RDW CV 14.7 11.6-14.6 H ML CBC W/DIFF, AUT RDW SD 42.5 fl 35.1-43.9 ML CBC W/DIFF, AUT PLT 258 K/mm3 150-450 ML CBC W/DIFF, AUT MPV 11.1 fl 6.2-12.0 ML CBC W/DIFF, AUT NEUT% 75.3 47-70 H ML CBC W/DIFF, AUT LY% 14.8 19-41 L ML CBC W/DIFF, AUT MONO% 7.1 0-10 ML CBC W/DIFF, AUT EO% 1.3 0-5 ML CBC W/DIFF, AUT BASO% 0.4 0-1 ML CBC W/DIFF, AUT IG% 1.100 0.0-0.9 H ML IG% - Immature Granulocytes (promyelocytes, myelocytes and metamyelocytes) > 1% indicates that a LEFT SHIFT is Present. CBC W/DIFF, AUT ABSOLUTE NEUT 6.4 X10 3/uL 2.0-7.7 ML CBC W/DIFF, AUT ABSOLUTE LYMPH 1.25 X10 3/uL 0.83-4.51 ML CBC W/DIFF, AUT NUCLEATED RBC 0 0-5 ML RULE OUT BETA S NOTE [facility]~[address] [place], [address]~ [id number] AB SCREEN GEL NEGATIVE ML GLUCOSE CHALLEN NOTE [facility] GLUCOSE CHALLEN GLU GEST 50G 1H 64 mg/dL 70-140 L ML CBC-COMPLETE BL NOTE [facility] CBC-COMPLETE BL WBC 10.2 K/mm3 4.4-11.0 ML CBC-COMPLETE BL RBC 3.44 M/mm3 4.2-5.4 L ML CBC-COMPLETE BL HGB 10.3 g/dL 12.0-15.0 L ML CBC-COMPLETE BL HCT 30.9 37-47 L ML CBC-COMPLETE BL MCV 89.8 fL 81-99 ML CBC-COMPLETE BL MCH 29.9 pg 27.0-32.0 ML CBC-COMPLETE BL MCHC 33.3 g/dL 32-36 ML CBC-COMPLETE BL RDW CV 13.2 11.6-14.6 ML CBC-COMPLETE BL RDW SD 43.6 fl 35.1-43.9 ML CBC-COMPLETE BL PLT 263 K/mm3 150-450 ML CBC-COMPLETE BL MPV 10.8 fl 6.2-12.0 ML CHLAMYDIA/GC NA NOTE [facility] CHLAMYDIA/GC NA CHLAMY,NUC ACID Negative Negative LCI CHLAMYDIA/GC NA GC BY NUC ACID Negative Negative LCI Performed at: =[address] [place] [id number] [employer]p Purchasing: Katie Pang MD, Phone: [phone] HEPATITIS C ANT NOTE [facility] HEPATITIS C ANT HEPATITIS C AB Non-Reactive Nonreactive ML Non Reactive: < 0.8 Equivocal: >/= 0.8 to < 1.0 Reactive: >/= 1.0 The CDC recommends that a reactive/equivocal HCV antibody result be followed up by the HCV Nucleic Acid Amplification test ([id number]) HEPATITIS B PIPPA NOTE [facility] HEPATITIS B PIPPA HEP B SURF AG Non-Reactive Nonreactive ML HIV - [facility] NOTE [facility] HIV - [facility] HIV Non-Reactive Nonreactive ML L509.8000 NOTE [facility] L509.8000 SYPHILIS ABS Non-reactive ML RUBELLA IGG NOTE [facility] RUBELLA IGG RUBELLA IGG Reactive Nonreactive ML Antibody Results Interpretation of Immune Status Non Reactive Presumed Non-Immune Equivocal Equivocal Reactive Presumed Immune PN N [facility]~[address] [place], [address]~ T AND AB SCREEN GEL NEGATIVE ML THYROID STIM HO NOTE [facility] THYROID STIM HO TSH 1.87 uIU/mL 0.358-3.74 ML URINALYSIS, ROU NOTE [facility] URINALYSIS, ROU COLOR Yellow Yellow ML URINALYSIS, ROU URINE CLARITY Clear Clear ML URINALYSIS, ROU GLUCOSE, UR Normal mg/dl Normal ML URINALYSIS, ROU BILIRUBIN URINE Negative mg/dL Negative ML URINALYSIS, ROU KETONE UR Negative mg/dl Negative ML URINALYSIS, ROU SP.GR. DIPSTX 1.010 1.002-1.030 ML URINALYSIS, ROU PH UR 6.5 5.0 - 8.0 ML URINALYSIS, ROU PROT DIPSTX Negative mg/dl Negative ML URINALYSIS, ROU UROBILI Normal mg/dl Normal ML URINALYSIS, ROU NITRITE Negative Negative ML URINALYSIS, ROU OCCULT BLOOD-UR Negative /ul Negative ML URINALYSIS, ROU LEUK ESTERASE Negative /ul Negative ML CBC W/DIFF, AUT NOTE [facility] CBC W/DIFF, AUT WBC 10.0 K/mm3 4.4-11.0 ML CBC W/DIFF, AUT RBC 4.36 M/mm3 4.2-5.4 ML CBC W/DIFF, AUT HGB 12.5 g/dL 12.0-15.0 ML CBC W/DIFF, AUT HCT 37.8 37-47 ML CBC W/DIFF, AUT MCV 86.7 fL 81-99 ML CBC W/DIFF, AUT MCH 28.7 pg 27.0-32.0 ML CBC W/DIFF, AUT MCHC 33.1 g/dL 32-36 ML CBC W/DIFF, AUT RDW CV 13.3 11.6-14.6 ML CBC W/DIFF, AUT RDW SD 42.5 fl 35.1-43.9 ML CBC W/DIFF, AUT PLT 270 K/mm3 150-450 ML CBC W/DIFF, AUT MPV 10.3 fl 6.2-12.0 ML CBC W/DIFF, AUT NEUT% 75.3 47-70 H ML CBC W/DIFF, AUT LY% 14.5 19-41 L ML CBC W/DIFF, AUT MONO% 4.2 0-10 ML CBC W/DIFF, AUT EO% 5.2 0-5 H ML CBC W/DIFF, AUT BASO% 0.4 0-1 ML CBC W/DIFF, AUT IG% 0.400 0.0-0.9 ML IG% - Immature Granulocytes (promyelocytes, myelocytes and metamyelocytes) > 1% indicates that a LEFT SHIFT is Present. CBC W/DIFF, AUT ABSOLUTE NEUT 7.6 X10 3/uL 2.0-7.7 ML CBC W/DIFF, AUT ABSOLUTE LYMPH 1.45 X10 3/uL 0.83-4.51 ML CBC W/DIFF, AUT NUCLEATED RBC 0 0-5 ML B NEGATIVE Group B Beta Streptococcus is not isolated. B NEGATIVE == ==== Impression /Plan: 40 wks + 2 days intrauterine . Preparations in progress for delivery.
[2021-04-09] MEDS: Oxytocin 30 units/NS 500 ml 30 UNITS/500 ML IV.SOLN 334 UNITS IV (15:15)
--- NOTE | 2021-04-09 15:23 | EX.PCM.OBRPT ---
Maternal Data Information Final MARY: 04/07/21 Final MARY Source: US <20 weeks Gestational age: 40w 2 d Vaginal Delivery Maternal Presentation Maternal Presentation: Elective Induction Type of Induction: Pitocin and Amniotomy Operative Information Date of Procedure: 04/09/21 Pre-Operative Diagnosis: IUP Post-Operative Diagnosis: IUP Type of Anesthesia: None Estimated Blood Loss: 250 cc Fluids Replaced: Crystalloid Findings Description of Procedure: Spontaneous vaginal delivery of a viable female infant with Apgars of 8/9 from an occiput anterior presentation with clear amniotic fluid and normal three-vessel placenta. No episiotomy. Second-degree midline laceration repaired with 3-0 rapide suture. Sponges okay. Delivery physician: Tahng Hinojosa MD. Presentation: Vertex Amniotic Membrane Rupture Type: Artificial Amniotic Fluid Description: Clear (At time of rupture) and Lightly stained meconium (In late labor) Placental Delivery Description: Spontaneous Placenta Disposition: [facility] Cord Vessel Description: 3 Vessels Cord Entanglement: Around neck x 2, loose A Gender: Female (1 minute): 8 (5 minute): 9 Post Vaginal Delivery Medications Given After Delivery: IV Pitocin Episiotomy Description: None Laceration: Midline and 2nd degree Complication Complications: None
--- NOTE | 2021-04-09 15:27 | PCM.DC ---
Documented by User: Dr. Thang Hinojosa MD 04/09/21 15:28 Discharge Instructions Activity May resume sexual activity in: 4-6 weeks Additional Activity Instructions:: Nothing in the vagina for 4-6 weeks. You may return to work/school in 6 weeks. Follow Up Care Please Follow Up With: Thang Hinojosa MD When: Call [phone] to make an appointment with your doctor in 6weeks. If you had elevated blood pressure or 4th degree laceration, you will need to be seen in 2 weeks. Test Results: Test results from this visit will be discussed in further detail at your follow-up appointment, if applicable. Discharge Plan Admission Admit Date/Time: 04/09/21 07:00 Primary Reason for Your Visit: Vaginal Delivery Attending Provider: Thang Hinojosa Discharge Orders/Prescriptions Prescriptions: No Action DHA 200 MG capsule 1 tab PO BID RF: 0 Disposition Disposition (needs filled in before D/C Order can be placed): Home, Self Care Documented by User: Dr. Eddie Huitron MD 04/10/21 08:37 Discharge Plan Admission Admit Date/Time: 04/09/21 07:00 Primary Reason for Your Visit: Vaginal Delivery Attending Provider: Thang Hinojosa Discharge Orders/Prescriptions Prescriptions: No Action DHA 200 MG capsule 1 tab PO BID RF: 0 Disposition Disposition (needs filled in before D/C Order can be placed): Home, Self Care
[2021-04-09] MEDS: Ibuprofen 600 MG Tablet PO (21:49)
--- NOTE | 2021-04-09 21:50 | NURSING ---
Pt complaining of left foot acheing, pt has significant varicose veins on this leg and foot, also noted +3 pitting edema on foot, pulse is palpable. This nurse helped pt elevate foot for pt and gave Dr. aman ward of pts foot,
[2021-04-10] VITALS (8 sets, daily range): BP systolic 100–117; BP diastolic 59–74; PULSE 76–88; RESP 16; TEMP 36.6–37; O2SAT 98–99
[2021-04-10] MEDS: Ibuprofen 600 MG Tablet PO (07:59)
--- NOTE | 2021-04-10 08:37 | PCM.PN.OB ---
Subjective Subjective No overnight complaints. Pain well controlled. Objective Data Objective Data Vital Signs: Vital Signs Temp Pulse Resp BP Pulse Ox 98.6 F 88 16 117/74 98 04/10/21 08:02 04/10/21 08:02 04/10/21 08:02 04/10/21 08:02 04/10/21 08:02 Oxygen Delivery Method Room Air Weight: 168 lb 10.458 oz Body Mass Index (BMI) 26.4 Intake & Output: Intake and Output for Last 24 Hours 04/08/21 04/09/21 04/10/21 23:59 23:59 23:59 Intake Total 932.07 / 932.07 Output Total 600 / 600 600 / 600 Balance 332.07 / 332.07 -600 / -600 Lab / Micro Data Result Diagrams: 04/09/21 07:50 Labs: Laboratory Results - last 24 hr 04/09/21 07:50: Blood Type B NEGATIVE, Antibody Screen NEGATIVE Physical Exam Const alert, oriented x3, no apparent distress, average body habitus, healthy appearing and well nourished HEENT normocephalic and moist oral mucous membranes Head and Scalp: atraumatic Face and Sinus: normal facial exam Eyes PERRL Neck full ROM Resp normal respiratory effort, no retractions and no use of accessory muscles GI normal to inspection, nondistended, normoactive bowel sounds GI Narrative: Uterus firm and below umbilicus Extremity normal to inspection, full ROM and no clubbing, cyanosis or edema Skin no rashes or lesions noted Psych mental status grossly normal, affect normal, speech normal and activity/motor behavior normal Assessment & Plan (1) Vaginal delivery: PLAN: day 1. Breast-feeding. Pain well controlled. Okay to discharge home today.
== END 2021-04-10 18:05 | disposition home or self-care (01) | DRG 807 ==
PROVIDERS: Admitting Provider Obstetrics & Gynecology; Referring Provider Obstetrics & Gynecology; Visit Provider Obstetrics & Gynecology
DX: O77.0 Labor and delivery complicated by meconium in amniotic fluid (principal); Z37.0 Single live birth; O70.1 Second degree perineal laceration during delivery; Z3A.40 40 weeks gestation of pregnancy; O69.81X0 Labor and delivery complicated by cord around neck, without compression, not applicable or unspecified
CPT/HCPCS: 59025; 59050; 85025; 86850; 86900; 86901; 99218; J7120; G0378